=== PATIENT | male | born 1965 | race Two or more races ===

== ENCOUNTER 2022-12-23 10:09 | Emergency (ER) | payer MEDICAID, OTHER ==
[~2022-12-23] VITALS: Ht 177.8 cm; Wt 85.1 kg
[2022-12-23] MEDS ORDERED: HYDROcodone-ACET 10/325MG TAB PO ONE (11:30)
[2022-12-23] MEDS ORDERED: CYCL-837 PO (12:27)
[2022-12-23] MEDS ORDERED: IBUP1TAB5 PO (12:27)
[2022-12-23] MEDS ORDERED: LIDO5PAD8 EX (12:28)
[2022-12-23 12:53] VITALS: BP 113/76; PULSE 72; RESP 18; TEMP 97.8; O2SAT 98
== END 2022-12-23 12:40 | disposition home or self-care (01) ==
LOC: ER 10:09
DX: S39.012A Strain of muscle, fascia and tendon of lower back, initial encounter (principal); X58.XXXA Exposure to other specified factors, initial encounter; Y93.89 Activity, other specified; Y92.89 Other specified places as the place of occurrence of the external cause; Y99.8 Other external cause status
CPT/HCPCS: 72100